=== PATIENT | male | born 1960 | race Caucasian/White ===

== ENCOUNTER 2019-05-17 17:23 | Emergency (ER) | payer OTHER ==
[2019-05-17 17:44] VITALS: BP 157/83; TEMP 98.1; O2SAT 95
[2019-05-17] MEDS ORDERED: TETANUS,DIPHTHERIA,PERTUSSIS 1 EA SYG IM ONE (17:49)
[2019-05-17] MEDS ORDERED: CHLORHEXIDINE GLUCONATE 4 % 15 ML UD TOP ONE (17:49)
[2019-05-17] MEDS ORDERED: NEOMYCIN-BACITRACIN-POLYMYXIN 0.9 GM UD TOP ONE (17:49)
--- NOTE | 2019-05-17 17:50 | ED.PDOC ---
History of Present Illness - General Chief Complaint: Laceration Stated Complaint: cut to left lower leg Time Seen by Provider: 05/17/19 17:40 Source: patient Exam Limitations: no limitations - History of Present Illness Initial Comments: Lambert Cleveland 58 y/o male stated dropped his electric knife while cutting fish on the floor but it bounce back and got struck on his left leg noted bleeding tied to pressed it but wont stop so decided to come to ER. Timing/Duration: just prior to arrival Severity: mild Location: extremities - left leg Improving Factors: rest Worsening Factors: movement Associated Symptoms: denies symptoms Allergies/Adverse Reactions: Allergies NO KNOWN ALLERGY Allergy (Verified 05/17/19 17:44) Home Medications: Ambulatory Orders Amoxicillin [Amoxil] 1,000 mg PO BID 7 Days cap 05/17/19 Carvedilol 3.125 mg PO DAILY 05/17/19 Losartan Potassium 25 mg PO DAILY 05/17/19 Review of Systems - Review of Systems Skin: States: see HPI All other Systems: Reviewed and Negative, No Change from Baseline Past Medical History (General) - Patient Medical History Hx Stroke: No Hx Congestive Heart Failure: No Hx Hypertension: Yes Hx Diabetes: No Surgical History: other - cheiloplasty;bilateral rotator cuff repair - Vaccination History Hx Tetanus, Diphtheria Vaccination: No Hx Influenza Vaccination: Yes Hx Pneumococcal Vaccination: Yes - Social History Hx Tobacco Use: No Family Medical History - Family History Father Family History: Unknown Living Status: Unknown Hx Family Congestive Heart Failure: Yes - mom Hx Family Hypertension: Yes - parents Physical Exam - Physical Exam General Appearance: Alert, No apparent distress Eyes, Ears, Nose, Throat Exam: normal ENT inspection Neck: supple, normal inspection Cardiovascular/Chest: normal peripheral pulses, regular rate, rhythm, no murmur Respiratory: lungs clear Gastrointestinal/Abdominal: soft Back Exam: normal inspection Extremity: normal inspection Skin Exam: warm/dry, normal color Skin Problem Location: lower extremities - superficial 0.5 cm lac left leg M/# Progress - Progress Progress: 05/17/19 17:53 Vital Signs - 8 hr 05/17/19 17:41 Temperature 98.1 F Pulse Rate [ 62 Right Brachial] Respiratory 20 Rate Blood Pressure 157/83 [Right Arm] O2 Sat by Pulse 95 Oximetry Departure - Departure Clinical Impression: Minor skin laceration Time of Disposition: 17:54 Disposition: Discharge to Home or Self Care Departure Forms: ED Discharge - Pt. Copy, Patient Portal Self Enrollment Instructions: DI for Laceration Repair, DI for Wound Infection Referrals: SUNITA BURT PA-C [Primary Care Provider] - 1-2 Weeks Prescriptions: Amoxicillin [Amoxil] 1,000 mg PO BID 7 Days cap Home Medications: Ambulatory Orders Amoxicillin [Amoxil] 1,000 mg PO BID 7 Days cap 05/17/19 Carvedilol 3.125 mg PO DAILY 05/17/19 Losartan Potassium 25 mg PO DAILY 05/17/19 Additional Instructions: May take Aleve over the counter 1-2 tablets am/pm for pain;Follow up with primary Md 20 May 2019 for recheck as needed
[2019-05-17] MEDS ORDERED: AMOXICILLIN 500 MG CAP PO ONE (17:53)
== END 2019-05-17 18:10 | disposition home or self-care (01) ==
LOC: ER 17:23
DX: S81.812A Laceration without foreign body, left lower leg, initial encounter (principal); I10 Essential (primary) hypertension; W29.8XXA Contact with other powered hand tools and household machinery, initial encounter; Y93.G1 Activity, food preparation and clean up; Z79.899 Other long term (current) drug therapy; Y92.9 Unspecified place or not applicable